=== PATIENT | female | born 1985 | race Caucasian/White ===

== ENCOUNTER 2018-10-21 15:18 | Day surgery (SDC) | payer BC ==
[2018-10-21 16:09] VITALS: BMI 30.2
--- NOTE | 2018-10-22 01:46 | SS ---
L&D Triage Note; 10/21/2018 REGULAR PHYSICIAN: Oliva Quesada MD EVALUATING PHYSICIAN: Abdias Nunez MD CHIEF COMPLAINT: Fall at work. HISTORY OF PRESENT ILLNESS: Ms. Celeste is a 33-year-old white G1, P0 with an estimated date of confinement of 12/08/2018, who presents complaining of a fall while working at her school. 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 She did fall forward. She denies ruptured membranes, vaginal bleeding, or decreased movement. Her care has been with Dr. Quesada and has been without complications. PAST MEDICAL HISTORY: None. PAST SURGICAL HISTORY: None. CURRENT MEDICATIONS: vitamins. ALLERGIES: NO KNOWN ALLERGIES. SOCIAL HISTORY: Denies tobacco, alcohol, or drug use. FAMILY HISTORY: Unremarkable. REVIEW OF SYSTEMS: Denies nausea, vomiting, fever, chills, ruptured membranes, or vaginal bleeding. PHYSICAL EXAMINATION: VITAL SIGNS: In triage, her vital signs are stable and she is afebrile. GENERAL: She is pleasant and in no acute distress. ABDOMEN: Soft, nontender, and gravid. There is no guarding or rebound. No bruising is seen. heart rate tracing is reassuring with spontaneous accelerations. No decelerations are seen. No significant uterine contractions are noted over a period of observation consistent with 4 hours post her fall. The patient is Rh positive per her report. ASSESSMENT: 1. 33-week intrauterine . 2. Status post fall. 3. Reassuring monitoring in Labor and Delivery today. PLAN: Per our protocol here, she has had reassuring on monitoring now 4 hours after a fall. She will be discharged with precautions. She is told to return should she notice decreased movement, vaginal bleeding, or ruptured membranes along with regular contractions. She voiced all of the above and will be discharged. I have contacted Dr. Quesada and she agrees with the plan. Job ID: [id number] MTDD
== END 2018-10-21 18:16 | disposition home health service (06) ==
LOC: L&D/OP 15:18
PROVIDERS: ATTEND Student in an Organized Health Care Education/Training Program
DX: Z04.2 Encounter for examination and observation following work accident (principal); Z79.899 Other long term (current) drug therapy; Z3A.33 33 weeks gestation of pregnancy; W01.0XXA Fall on same level from slipping, tripping and stumbling without subsequent striking against object, initial encounter; Y93.89 Activity, other specified; Y92.219 Unspecified school as the place of occurrence of the external cause; Y99.0 Civilian activity done for income or pay
CPT/HCPCS: 99282

== ENCOUNTER 2018-11-18 10:24 | Inpatient (IN) | payer BC ==
[~2018-11-18 10:24] MED LIST: Bupivacaine/Epinephrine 0.25% 30 ML VIAL ONE
[2018-11-18 21:15] VITALS: BMI 31.8
[2018-11-18] MEDS ORDERED: Acetaminophen 500 MG TAB PO PRN (21:32)
[2018-11-18] MEDS ORDERED: HYDROcodone/Acetaminophen 5/325 mg Tablet PO PRN (21:32)
[2018-11-18] MEDS ORDERED: Diphenoxylate HCl/Atropine Tablet PO PRN (21:32)
[2018-11-18] MEDS ORDERED: Ondansetron PF 4 MG/2 ML Vial IVP PRN (21:32)
[2018-11-18] MEDS ORDERED: NS / Oxytocin 40 units/1000ml 1,000 ML IV PRN (21:32)
[2018-11-18] MEDS ORDERED: Carboprost 250 MCG/ML AMP IM PRN (21:32)
[2018-11-18] MEDS ORDERED: Butorphanol Tartrate 1 MG/ML VIAL SLOW IVP PRN (21:32)
[2018-11-18] MEDS ORDERED: Lidocaine 1% (PF) 30 ML VIAL SC PRN (21:32)
[2018-11-18] MEDS ORDERED: Promethazine HCl 25 MG/ML VIAL IM PRN (21:32)
[2018-11-18] MEDS ORDERED: Misoprostol 200 MCG TAB PR PRN (21:32)
[2018-11-18] MEDS ORDERED: Penicillin G Potassium 5 MILL.UNITS in Sodium Chloride 0.9% 100 ML IVPB SCH (21:45)
[2018-11-18] MEDS ORDERED: Lactated Ringer's 1,000 ML IV SCH (21:45)
[2018-11-18] MEDS ORDERED: NS w/ Oxytocin 10 units 500 ML IV SCH (21:45)
[2018-11-18] MEDS: Misoprostol 100 MCG TAB VAG SCH (22:30)
[2018-11-18 22:58] LABS: Hemoglobin 14.2 g/dL (12.0-16.0); Mean Corpuscular HGB CONC 34.3 g/dL (32.0-36.0); Mean Corpuscular Hemoglobin 31.7 pg (27.0-31.0); Mean Corpuscular Volume 92.3 fL (78.0-98.0); Mean Platelet Volume 9.7 fL (7.4-10.4); Platelet Count 184 thou/uL (130-400); RBC Distribution Width 11.8 % (11.5-14.5); Red Blood Cell (RBC) Count 4.49 mill/uL (4.20-5.40); White Blood Cell (WBC) Count 9.4 thou/uL (4.8-10.8)
[2018-11-18 23:18] LABS: ALT (SGPT) 18 U/L (8-55); AST (SGOT) 32 U/L (5-34); Albumin 3.6 g/dL (3.5-5.0); Alkaline Phosphatase 123 U/L (40-150); Anion Gap 14 mmol/L (10-20); BUN (Urea Nitrogen) 14 mg/dL (7.0-18.7); Calc. Creatinine Clearance 159 mL/min (70-130); Calcium 9.6 mg/dL (7.8-10.44); Carbon Dioxide 22 mmol/L (22-29); Chloride 104 mmol/L (98-107); Estimated GFR-MDRD Greater than 90; Glucose 77 mg/dL (70-105); Potassium 3.7 mmol/L (3.5-5.1); Protein, Total 6.6 g/dL (6.0-8.3); Sodium 136 mmol/L (136-145)
[2018-11-18 23:35] LABS: Syphilis Antibody Nonreactive (Nonreactive); Syphilis Antibody Index 0.03 S/CO (<1.00 Non-Reactive)
[2018-11-19 00:15] LABS: HBSAg Index 0.27 S/CO (0-0.99); Hep B Surf Ag Non-Reactive S/CO (NonReactive)
[2018-11-19] MEDS: Misoprostol 100 MCG TAB VAG SCH (02:16)
[2018-11-19] MEDS: Penicillin G 2.5 MILL.units 2.5 MILL.UNITS in Premix Bag 1 BAG IVPB SCH ×2 (02:16→06:24)
[2018-11-19] MEDS ORDERED: Fentanyl 4 mcg/Bup 0.1% Cadd 100 ML ONE (05:38)
[2018-11-19] MEDS ORDERED: Lactated Ringer's 500 ML IV PRN (06:12)
[2018-11-19] MEDS ORDERED: Acetaminophen 325 MG TAB PO PRN (06:12)
[2018-11-19] MEDS ORDERED: Promethazine HCl 25 MG/ML VIAL IM PRN ×2 (06:12→10:19)
[2018-11-19] MEDS ORDERED: Naloxone HCl 0.4 mg/ml Vial IVP PRN ×2 (06:12)
[2018-11-19] MEDS ORDERED: Ondansetron PF 4 MG/2 ML Vial IVP PRN ×2 (06:12→10:19)
[2018-11-19] MEDS ORDERED: diphenhydrAMINE 50 MG/ML VIAL IVP PRN (06:12)
[2018-11-19] MEDS ORDERED: Eucerin (Mineral Oil/Petrolatum,White) 30 gm Jar TOP PRN (06:12)
[2018-11-19] MEDS ORDERED: ePHEDrine/0.9% NaCl/PF SYRINGE 50 mg/10 ml SLOW IVP PRN (06:12)
[2018-11-19] MEDS ORDERED: Fentanyl 4 mcg/Bupivacaine 0.1% Cassette 100 ML EPIDURAL SCH (06:15)
[2018-11-19] MEDS ORDERED: Communication Order-Pharmacy FS SCH (06:15)
--- NOTE | 2018-11-19 08:05 | PDOC.LDHP ---
Labor and Delivery H&P Chief complaint: scheduled induction HPI: 33yo at 37w1d by LMP here for IOL 2/2 GHTN. Pt had 2 doses cytotec overnight and entered into active labor. No complaints, currently, no sx PIH. Current gestational age (weeks): 37 Due date: 12/08/18 Dating criteria: last menstrual period Grav: 1 Para: 0 Current complications: gestational hypertension Abnormal US findings: No Past Medical History: denies Current medications: pre- vitamins Previous surgical history: none Allergies/Adverse Reactions: Allergies Allergy/AdvReac Type Severity Reaction Status Date / Time No Known Allergies Allergy Verified 11/18/18 21:13 Social history: none - Physical Exam Vital signs reviewed and normal: yes Abnormal vital signs: occ mild range blood pressures General: NAD Heart: RRR Lungs: CTAB Abdomen: gravid Extremeties: no edema FHT: category 1 [place] contractions every: 2-3min - Vaginal Exam cm dilated: 10 Effacement: 100% Station: 1+ - OB Labs Blood type: A RH: positive Antibody Screen: negative HIV: negative RPR: negative HEPSAg: negative 1 hour GCT: negative GBS: positive Urine drug screen: negative Rubella: immune - Assessment L&D Assessment: medically indicated induction - Plan Plan: admit to L&D, labor augmentation if indicated, GBS antibiotic prophylaxis , informed consent obtained, anesthesia consult for pain management -: PIH labs negative, would mag for severe features, cont close monitoring.
--- NOTE | 2018-11-19 09:04 | PDOC.OPDEL ---
OB Operative/Delivery Note Delivery Dr/Surgeon: Sangita Assist: n/a Pre-Delivery Diagnosis: medically indicated induction Procedure/Post Delivery Dx: spontaneous vaginal delivery Weeks gestation: 37 Anesthesia: epidural - Findings A Sex: female - 1 min: 8 - 5 min: 9 - Additional Findings/Plan Placenta delivered: spontaneous Repaired Obstetrical Laceration: 2nd degree (repaired with 2-0 vicryl in usual fashion, excellent hemostasis) Estimated blood loss: 200 Compilations/Other Findings: NC x 1 reduced Post delivery plan: routine recovery
[2018-11-19] MEDS ORDERED: Milk Of Magnesia 30 ML UDCUP PO PRN (10:19)
[2018-11-19] MEDS ORDERED: HYDROcodone/Acetaminophen 5/325 mg Tablet PO PRN ×2 (10:19)
[2018-11-19] MEDS ORDERED: diphenhydrAMINE 25 MG CAP PO PRN (10:19)
[2018-11-19] MEDS ORDERED: Lanolin Ointment 7 GM TUBE TOP PRN (10:19)
[2018-11-19] MEDS ORDERED: Zolpidem Tartrate 5 MG TAB PO PRN (10:19)
[2018-11-19] MEDS ORDERED: Benzocaine-Menthol 82.5 ML CAN TOP PRN (10:19)
[2018-11-19] MEDS ORDERED: Preparation H Ointment 28 GM TUBE PR PRN (10:19)
[2018-11-19] MEDS ORDERED: NS / Oxytocin 40 units/1000ml 1,000 ML IV SCH (10:19)
[2018-11-19] MEDS ORDERED: Bisacodyl 10 MG SUPP PR PRN (10:19)
[2018-11-19] MEDS: Ibuprofen 800 MG TAB PO SCH ×2 (14:39→22:09)
[2018-11-19] MEDS: NIFEdipine XL 30 MG TAB PO SCH (20:14)
[2018-11-19] MEDS: Ferrous Sulfate 325 MG TAB PO SCH (21:55)
[2018-11-19] MEDS: Docusate Calcium (SURFAK) 240 MG CAP PO SCH (22:09)
--- NOTE | 2018-11-20 04:54 | PDOC.PP ---
Post Progress Note Post Day #: 1 Subjective: Doing well, no HAs or visual changes. patient was up with baby PO intake tolerated: yes Flatus: yes Ambulation: yes Vital Signs (12 hours) Temp Pulse Resp BP BP Pulse Ox 11/20/18 00:30 98.1 F 71 16 126/71 11/19/18 20:14 80 143/91 H 11/19/18 19:44 98.1 F 80 18 143/91 H 98 11/19/18 17:45 67 20 141/93 H 11/19/18 17:00 98.2 F 77 20 141/95 H Weight Weight 180 lb Last PP BPs all reviewed. Patient started on procardia 30mg po XL last pm by primary MD - Physical Examination General: NAD Cardiovascular: no m/r/g Respiratory: clear to auscultation bilaterally Abdominal: + bowel sounds, lochia, no distention, appropriately TTP Extremities: negative homans (B) Neurological: no gross focal deficits Psychiatric: A&Ox3, normal affect Result Diagrams: 11/18/18 21:59 11/18/18 21:59 Additional Labs: Post Labs Blood Type A POSITIVE 11/18/18 23:51 Hep Bs Antigen Non-Reactive S/CO (NonReactive) 11/18/18 21:59 (1) Vaginal delivery Code(s): O80 - ENCOUNTER FOR FULL-TERM UNCOMPLICATED DELIVERY Status: Acute (2) Gestational hypertension Code(s): O13.9 - GESTATIONAL HTN W/O SIGNIFICANT PROTEINURIA, UNSP TRIMESTER Status: Acute - Assessment/Plan PPD1 doing well. Started on procardia 30mg po XL last PM by her primary MD...BPs controlled now with range 140/90s to 120/70s. We will monitor BPs today and likely DC to home on PPD2 11/21/18. No acute needs at this time
[2018-11-20] MEDS: Ibuprofen 800 MG TAB PO SCH ×3 (05:34→21:14)
[2018-11-20] MEDS ORDERED: Measles/Mumps/Rubella 10 MCG/0.5 ML VIAL SC ONE (09:00)
[2018-11-20] MEDS ORDERED: Adacel (T-DAP) 0.5 ML SYRINGE IM ONE (09:00)
[2018-11-20] MEDS: Docusate Calcium (SURFAK) 240 MG CAP PO SCH ×2 (09:34→21:14)
[2018-11-20] MEDS: Ferrous Sulfate 325 MG TAB PO SCH ×2 (09:34→16:26)
[2018-11-20] MEDS: Prenatal Vitamin 1 TAB PO SCH (09:34)
[2018-11-20] MEDS: NIFEdipine XL 30 MG TAB PO SCH (21:14)
[2018-11-21] MEDS: Ibuprofen 800 MG TAB PO SCH (05:02)
[2018-11-21] MEDS: Ferrous Sulfate 325 MG TAB PO SCH (07:25)
[2018-11-21 08:07] VITALS: BP 133/86; TEMP 98.4
[2018-11-21] MEDS: Docusate Calcium (SURFAK) 240 MG CAP PO SCH (09:30)
[2018-11-21] MEDS: Prenatal Vitamin 1 TAB PO SCH (09:30)
--- NOTE | 2018-11-21 19:55 | DIS ---
DATE OF ADMISSION: 11/18/2018 DATE OF DISCHARGE: 11/21/2018 ADMITTING DIAGNOSES: 1. Intrauterine at 37 weeks. 2. Gestational hypertension. 3. Induction of labor. Medically indicated. DISCHARGE DIAGNOSES: 1. Intrauterine at 37 weeks. 2. Gestational hypertension. 3. Induction of labor. Medically indicated. PROCEDURE: Term spontaneous vaginal delivery. HOSPITAL COURSE: The patient is a 33-year-old female who presented for induction of labor secondary to gestational hypertension at 37 weeks. Her labor course was uncomplicated and resulted in a term spontaneous vaginal delivery. Her course has also been uncomplicated. Today is day #2. Blood pressures have been in the normal to mild range on Procardia XL 30 mg daily. PHYSICAL EXAMINATION: VITAL SIGNS: Blood pressure this morning was 128/88, pulse 71, respiratory rate 18, saturating 99% on room air. GENERAL: The patient reports that she is tolerating p.o., voiding on her own, having decreased lochia and good pain control. She is in no acute distress. She is alert, oriented, cooperative, and pleasant to interact with. HEENT: Head is normocephalic, atraumatic. : Fundus is firm. EXTREMITIES: Nontender and symmetrical. DISCHARGE INSTRUCTIONS: The patient is being discharged to home. She has instructions to follow up with Dr. Quesada in 1 week for blood pressure check and has been given instructions to seek medical attention sooner should she experience fever, increasing pain, or bleeding. The patient is being discharged home with Procardia XL 30 mg daily. Job ID: [id number]
== END 2018-11-21 11:30 | disposition home or self-care (01) | DRG 807 ==
LOC: EDSTATUS 13:37 → L&D 20:40 → 3SW 11-19 11:21
PROVIDERS: ADMIT Student in an Organized Health Care Education/Training Program; ATTEND Student in an Organized Health Care Education/Training Program
PROC: 10E0XZZ Delivery of Products of Conception, External Approach (ICD-10-PCS; principal; 2018-11-19)
PROC: 0KQM0ZZ Repair Perineum Muscle, Open Approach (ICD-10-PCS; 2018-11-19)
PROC: 3E033VJ Introduction of Other Hormone into Peripheral Vein, Percutaneous Approach (ICD-10-PCS; 2018-11-19)
DX: O13.4 Gestational [pregnancy-induced] hypertension without significant proteinuria, complicating childbirth (principal); Z37.0 Single live birth; O70.1 Second degree perineal laceration during delivery; Z3A.37 37 weeks gestation of pregnancy
CPT/HCPCS: 36415; 51702; 80053; 82043; 84156; 85025; 85027; 86780; 86850; 86900; 86901; 87340; J0595; J2001; J2405; J2540; J3490

== ENCOUNTER 2020-02-16 08:33 | Outpatient (CLI) | payer BC ==
--- NOTE | 2020-02-16 09:35 | MRI ---
MRI BRAIN WITH AND WITHOUT IV CONTRAST: HISTORY: Migraine with aura and without status migrainosus COMPARISON: None CORRELATION: None FINDINGS: No restricted diffusion is seen. No evidence of infarct, hemorrhage, mass, midline shift or abnormal extra-axial fluid collections is noted. No abnormal postcontrast enhancement is seen. The ventricular size is appropriate and the basilar cisterns are patent. No tonsillar herniation is seen. A small focus retention cyst versus polyp is seen in the left sphenoid sinus. IMPRESSION: Normal MRI of the brain
== END 2020-02-16 08:34 | disposition home or self-care (01) ==
LOC: SCSMRI 08:33
PROVIDERS: ATTEND Family Medicine
DX: G43.109 Migraine with aura, not intractable, without status migrainosus (principal)
CPT/HCPCS: 70553